=== PATIENT | female | born 1995 | race Two or more races ===

== ENCOUNTER 2022-10-25 05:19 | Emergency (ER) | payer MEDICAID ==
[~2022-10-25] VITALS: Ht 160 cm; Wt 69.9 kg
[2022-10-25 05:25] VITALS: BP 114/64
[2022-10-25] MEDS ORDERED: KETOROLAC TROMETH 60MG/2ML VIAL IM ONE (08:45)
[2022-10-25] MEDS ORDERED: DexAMETHasone SOD PHOS 10MG/1ML VIAL INJ IM ONE (08:45)
[2022-10-25] MEDS ORDERED: IBUP800T26 PO (10:08)
[2022-10-25] MEDS ORDERED: ACET-1158 PO (10:08)
== END 2022-10-25 10:17 | disposition home or self-care (01) ==
LOC: ER 05:19
DX: J02.0 Streptococcal pharyngitis (principal)
CPT/HCPCS: 87070; 87880; 96372; 99284; J1100; J1885